=== PATIENT | female | born 2000 | race Asian ===

== ENCOUNTER 2023-09-21 04:29 | Day surgery (SDC) | payer OTHER ==
[2023-09-12 13:29] VITALS: BMI 21.4
[2023-09-21] MEDS ORDERED: PROMETHAZINE HCL 25 MG/1 ML VIAL IVPB PRN (09:53)
[2023-09-21] MEDS ORDERED: ONDANSETRON 4 MG/2 ML VIAL IVPUSH PRN (09:53)
[2023-09-21] MEDS ORDERED: LACTATED RINGERS SOLUTION 1,000 ML IV SCH (10:00)
[2023-09-21] MEDS ORDERED: MIDAZOLAM HCL 2 MG/2 ML SINGLE DOSE VIAL ONE (10:16)
[2023-09-21] MEDS ORDERED: PROPOFOL 20 ML ONE (10:16)
[2023-09-21] MEDS ORDERED: SODIUM CHLORIDE 0.9% P/F 10 ML VIAL IJ ONE (10:17)
[2023-09-21] MEDS ORDERED: ceFAZolin SODIUM 1 GM VIAL ONE (10:17)
[2023-09-21] MEDS ORDERED: LIDOCAINE HCL/PF 2% SDV 5ML VIAL ONE (10:17)
[2023-09-21] MEDS ORDERED: ceFAZolin SODIUM 1 GM VIAL IVPB ONE (10:28)
[2023-09-21] MEDS ORDERED: ONDANSETRON 4 MG/2 ML VIAL ONE (10:30)
[2023-09-21 11:25] VITALS: RESP 18; TEMP 97.8
[2023-09-21 12:55] VITALS: BP 118/78; PULSE 75
== END 2023-09-21 12:30 | disposition home or self-care (01) ==
LOC: JASU-SURG 04:29
PROVIDERS: ATTEND Surgery
PROC: 0JB40ZX Excision of Right Neck Subcutaneous Tissue and Fascia, Open Approach, Diagnostic (ICD-10-PCS; principal; 2023-09-21 10:30)
DX: L72.3 Sebaceous cyst (principal)
CPT/HCPCS: 81025; 88304-TC